=== PATIENT | male | born 1965 | race Caucasian/White ===

== ENCOUNTER 2020-04-07 17:06 | Emergency (ER) | payer OTHER ==
[~2020-04-07] VITALS: Ht 175.3 cm; Wt 120.0 kg
[~2020-04-07 17:06] MED LIST: BAYER ASA325 MG OR; CIPROFLOXACN500 MG PO; CLONIDINE0.1 MG PO; FLEXERIL PO; HYDROCHLOROT25 MG PO; LORTAB 10-325 M1 TAB PO; LOSARTAN POTASS50 MG PO; MEDDOSEPAK OR; METRONIDAZOL500 MG PO; NAPROSYN500 MG PO; ULTRAM50 M1 PO; ZPAK PO
[2020-04-07 17:58] VITALS: BP 158/75
== END 2020-04-07 18:05 | disposition home or self-care (01) ==
LOC: ED 17:06
DX: L76.21 Postprocedural hemorrhage of skin and subcutaneous tissue following a dermatologic procedure (principal); C43.61 Malignant melanoma of right upper limb, including shoulder; I10 Essential (primary) hypertension; Y83.8 Other surgical procedures as the cause of abnormal reaction of the patient, or of later complication, without mention of misadventure at the time of the procedure